=== PATIENT | female | born 1930 | race Hispanic/Latino ===

== ENCOUNTER 2017-03-21 10:43 | Inpatient (IN) | payer MEDICARE ==
[2017-03-21 11:56] LABS: Calcium 8.7 mg/dL (8.4-10.2); Chloride 107.2 mmol/L (98-107); Potassium 4.5 mmol/L (3.6-5.0)
[2017-03-21 12:13] LABS: Hematocrit 22.4 % (30.3-42.9); Hemoglobin 7.1 gm/dl (10.1-14.3); Mean Corpuscular HGB Conc 32 % (30-34); Mean Corpuscular Hemoglobin 28 pg (28-32); Mean Corpuscular Volume 87 fl (79-97); Platelet Count 205 K/mm3 (140-440); Red Blood Count 2.58 M/mm3 (3.65-5.03); Red Cell Distribution Width 17.4 % (13.2-15.2); White Blood Count 7.9 K/mm3 (4.5-11.0)
[2017-03-21] MEDS ORDERED: NACL 0.9% 500 ML 500 ML IV ONE ×2 (12:52→18:09)
--- NOTE | 2017-03-21 12:59 | Emergency Department Report ---
ED General Adult HPI - General Chief complaint: Weakness Stated complaint: SOB/ARM/LEGS PAIN Time Seen by Provider: 03/21/17 12:31 Source: patient Mode of arrival: Ambulatory Limitations: Physical Limitation - History of Present Illness Initial comments: Cardiology: Dr. Mccauley Nephrology: Dr. Mercado Primary care Dr.: Dr. Lisa Gastroenterology: Dr. Putnam Past medical history: Macular degeneration, blind in the right eye, congestive heart failure (does not know ejection fraction), renal insufficiency, ( previously was stage IV), coronary artery disease with stents, recent history of nosebleed, currently on Plavix, Resuscitation status: DO NOT RESUSCITATE, DO NOT INTUBATE This is an 86-year-old female. She is previously unknown to me. She presents to the ER complaining of generalized weakness and shortness of breath. There is no hematemesis. There is no bright red blood per rectum. There are no irritative or obstructive urinary symptoms. The symptoms are constant. They 're worsening. It worsened with physical exertion. It decreased with rest. There is no focal extremity weakness or numbness. There is no bladder or bowel retention or incontinence. There is no saddle anesthesia. Patient and daughter state no recent colonoscopy within the past 10 years. -: Gradual Consistency: constant Improves with: rest Worsens with: movement Associated Symptoms: loss of appetite, malaise, shortness of breath, weakness - Related Data Home Medications Medication Instructions Recorded Confirmed Last Taken Aspirin [Aspirin BABY CHEW TAB] 81 mg PO QDAY 03/21/17 03/21/17 Unknown AtorvaSTATin [Lipitor] 40 mg PO QHS 03/21/17 03/21/17 Unknown Carvedilol [Coreg] 3.125 mg PO DAILY 03/21/17 03/21/17 Unknown Clopidogrel Bisulfate [Plavix] 75 mg PO DAILY 03/21/17 03/21/17 Unknown Ergocalciferol (Vitamin D2) 1 tab PO QWEEK 03/21/17 03/21/17 Unknown [Vitamin D2] Furosemide [Lasix TAB] 20 mg PO DAILY 03/21/17 03/21/17 Unknown Iron 18 mg PO DAILY 03/21/17 03/21/17 Unknown Losartan [Cozaar] 25 mg PO DAILY 03/21/17 03/21/17 Unknown Mirtazapine 15 mg PO DAILY 03/21/17 03/21/17 Unknown Spironolactone [Aldactone] 12.5 mg PO DAILY 03/21/17 03/21/17 Unknown Allergies Allergy/AdvReac Type Severity Reaction Status Date / Time erythromycin base Allergy Vomiting Verified 03/21/17 11:03 ED Review of Systems ROS: Stated complaint: SOB/ARM/LEGS PAIN Other details as noted in HPI Constitutional: malaise, weakness Eyes: denies: vision change Respiratory: shortness of breath Cardiovascular: dyspnea on exertion Gastrointestinal: denies: abdominal pain Genitourinary: denies: urgency, dysuria Musculoskeletal: denies: back pain Skin: denies: lesions Neurological: weakness Psychiatric: as per HPI ED Past Medical Hx - Past Medical History Previous Medical History?: Yes Hx Congestive Heart Failure: Yes Hx Diabetes: Yes (Diet Controlled) Hx Renal Disease: Yes Additional medical history: Macular Deg., Cardiac Stents, - Surgical History Past Surgical History?: Yes Hx Coronary Stent: Yes Additional Surgical History: Stents, eye - Social History Smoking Status: Former Smoker Substance Use Type: None - Medications Home Medications: Home Medications Medication Instructions Recorded Confirmed Last Taken Type Aspirin [Aspirin BABY CHEW TAB] 81 mg PO QDAY 03/21/17 03/21/17 Unknown History AtorvaSTATin [Lipitor] 40 mg PO QHS 03/21/17 03/21/17 Unknown History Carvedilol [Coreg] 3.125 mg PO DAILY 03/21/17 03/21/17 Unknown History Clopidogrel Bisulfate [Plavix] 75 mg PO DAILY 03/21/17 03/21/17 Unknown History Ergocalciferol (Vitamin D2) 1 tab PO QWEEK 03/21/17 03/21/17 Unknown History [Vitamin D2] Furosemide [Lasix TAB] 20 mg PO DAILY 03/21/17 03/21/17 Unknown History Iron 18 mg PO DAILY 03/21/17 03/21/17 Unknown History Losartan [Cozaar] 25 mg PO DAILY 03/21/17 03/21/17 Unknown History Mirtazapine 15 mg PO DAILY 03/21/17 03/21/17 Unknown History Spironolactone [Aldactone] 12.5 mg PO DAILY 03/21/17 03/21/17 Unknown History ED Physical Exam - General Limitations: Physical Limitation General appearance: alert, in no apparent distress - Head Head exam: Present: atraumatic, normocephalic - Eye Eye exam: Present: EOMI, other (there is a cloudy an opacified right eye, which is chronic) - ENT ENT exam: Present: mucous membranes moist - Neck Neck exam: Present: normal inspection, full ROM. Absent: tenderness, meningismus - Respiratory Respiratory exam: Present: normal lung sounds bilaterally. Absent: respiratory distress, wheezes, rales, rhonchi, stridor, chest wall tenderness, accessory muscle use, decreased breath sounds, prolonged expiratory - Cardiovascular Cardiovascular Exam: Present: regular rate, normal rhythm, normal heart sounds. Absent: bradycardia, tachycardia, irregular rhythm, systolic murmur, diastolic murmur, rubs, gallop - GI/Abdominal GI/Abdominal exam: Present: soft, normal bowel sounds. Absent: distended, tenderness, guarding, rebound, rigid, pulsatile mass - Rectal Rectal exam: Present: normal inspection, normal rectal tone, heme (+) stool, other (there is brown stool that is trace guaiac positive. During the rectal examination, I am escorted by nurse Austin Dye) - Extremities Exam Extremities exam: Present: normal inspection, full ROM. Absent: tenderness, pedal edema, joint swelling, calf tenderness - Back Exam Back exam: Present: normal inspection. Absent: full ROM, tenderness, CVA tenderness (R), CVA tenderness (L), muscle spasm, paraspinal tenderness, vertebral tenderness - Neurological Exam Neurological exam: Present: alert, oriented X3, other (Extraocular movements intact. Tongue midline. No facial droop. Facial sensation intact to light touch in the V1, V2, V3 distribution bilaterally. 5 and 5 strength in 4 extremities.. Sensation is intact to light touch in 4 extremities.). Absent: motor sensory deficit - Psychiatric Psychiatric exam: Present: normal affect, normal mood - Skin Skin exam: Present: warm, dry, intact, normal color. Absent: rash ED Course Vital Signs 03/21/17 03/21/17 03/21/17 11:03 12:55 13:00 Temperature 97.5 F L 98.9 F Pulse Rate 87 72 76 Respiratory 20 25 H 18 Rate Blood Pressure 124/69 126/46 O2 Sat by Pulse 100 100 100 Oximetry 03/21/17 03/21/17 03/21/17 13:31 13:45 14:00 Temperature Pulse Rate 72 70 Respiratory 23 16 22 Rate Blood Pressure 126/46 120/37 O2 Sat by Pulse 100 98 100 Oximetry 03/21/17 03/21/17 03/21/17 14:31 15:00 15:31 Temperature Pulse Rate 73 73 72 Respiratory 23 18 23 Rate Blood Pressure 120/37 121/49 121/49 O2 Sat by Pulse 98 99 98 Oximetry 03/21/17 03/21/17 03/21/17 15:40 15:55 16:00 Temperature 98.2 F 98.2 F Pulse Rate 71 79 70 Respiratory 16 16 22 Rate Blood Pressure 121/49 125/46 130/46 O2 Sat by Pulse 99 100 100 Oximetry - Reevaluation(s) Reevaluation #1: 03/21/17 13:04 Differential diagnosis: Acute coronary syndrome, congestive heart failure, pneumonia, symptomatic anemia, urinary tract infection, multifactorial shortness of breath Assessment and plan: 86-year-old female with generalized weakness and malaise. Patient is DO NOT RESUSCITATE, DO NOT INTUBATE, she is alert, oriented, cogent and lucid. She is found to have renal insufficiency, which appears to be improved when compared to a verbal report from patient's daughter (she reports patient has been at stage IV renal insufficiency in the past.) She is anemic with a hemoglobin and hematocrit of 7/22 respectively, found to have guaiac positive stool. The patient is not interested in colonoscopy or cancer screening. The patient and family are interested in comfort care only. They are amenable to admission, and transfusion of packed red blood cells. Urinalysis and chest x-ray are pending. As per family, no aspirin, Maalox okay to Plavix. I have contacted cardiology, Cony Garsia, I am waiting for their formal recommendations. The Hospital physician has been paged, I'm awaiting callback to facilitate admission. Reevaluation #2: 03/21/17 13:59 Dr. Cole accepts patient ED Medical Decision Making - Lab Data Result diagrams: 03/21/17 11:24 03/21/17 11:24 Vital Signs 03/21/17 11:03 Temperature 97.5 F L Pulse Rate 87 Respiratory 20 Rate Blood Pressure 124/69 O2 Sat by Pulse 100 Oximetry Lab Results 03/21/17 03/21/17 Range/Units 11:24 11:24 WBC 7.9 (4.5-11.0) K/mm3 RBC 2.58 L (3.65-5.03) M/mm3 Hgb 7.1 L (10.1-14.3) gm/dl Hct 22.4 L (30.3-42.9) % MCV 87 (79-97) fl MCH 28 (28-32) pg MCHC 32 (30-34) % RDW 17.4 H (13.2-15.2) % Plt Count 205 (140-440) K/mm3 Lymph % (Auto) Client Services Specialist Rhea % (Auto) Client Services Specialist Eos % (Auto) Client Services Specialist Baso % (Auto) Client Services Specialist Lymph # Client Services Specialist [place]hea # Client Services Specialist Eos # Client Services Specialist Baso # Client Services Specialist Seg Neutrophils % Client Services Specialist Seg Neutrophils # Client Services Specialist Sodium 145 (137-145) mmol/L Potassium 4.5 (3.6-5.0) mmol/L Chloride 107.2 H (98-107) mmol/L Carbon Dioxide 20 L (22-30) mmol/L Anion Gap 22 mmol/L BUN 40 H (7-17) mg/dL Creatinine 1.6 H (0.7-1.2) mg/dL Estimated GFR 30 ml/min BUN/Creatinine Ratio 25.00 % Glucose 231 H (65-100) mg/dL Calcium 8.7 (8.4-10.2) mg/dL Troponin T 0.411 H* (0.00-0.029) ng/mL Triglycerides 89 (2-149) mg/dL Cholesterol 112 (50-199) mg/dL LDL Cholesterol Direct 63 (50-130) mg/dL HDL Cholesterol 32 L (40-59) mg/dL Cholesterol/HDL Ratio 3.50 % - EKG Data When compared to previous EKG there are: previous EKG unavailable 03/21/17 13:06 Normal sinus, 78 bpm, left axis deviation, left ventricular hypertrophy, Left anterior fascicular block, , poor R-wave progression, abnormal EKG, not morphologically consistent with STEMI. - Radiology Data Radiology results: report reviewed, image reviewed X-ray of the chest: Mild cardiomegaly, possible slight congestion with left- sided pleural effusion, EKG leads are noted. Critical Care Time: Yes Critical care time in (mins) excluding proc time.: 35 Critical care attestation.: If time is entered above; I have spent that time in minutes in the direct care of this critically ill patient, excluding procedure time. Critical Care Time: Critical care time includes multiple bedside evaluations, interpretation of laboratory studies, radiology studies, time spent discussing goals of care with patient, family, consulting services, including hospital medicine, cardiology, time spent managing a patient with symptomatic anemia requiring packed red blood cell transfusion. This does not include procedure time. ED Disposition Clinical Impression: Symptomatic anemia, Dyspnea, Weakness Disposition: OP ADMITTED IP TO THIS HOSP Is pt being admited?: Yes Condition: Fair
--- NOTE | 2017-03-21 13:02 | Admit Criteria Form ---
Admission Criteria Documentation: GASTROINTESTINAL BLEEDING Clinical Indications for Inpatient Care (Place 'X' for any and all applicable criteria): Ongoing inpatient care may be indicated for gastrointestinal bleeding with ANY ONE of the following (4)(20)(21)(22)(23)(24): [ ]I. Active bleeding (eg, fresh voluminous blood in emesis or nasogastric aspirate, or per rectum) [ ]II. Hemodynamic instability [ ]III. Anticoagulation therapy or coagulopathy ((eg, advanced liver disease, irreversible anticoagulation) [ ]IV. Ischemic colitis (22) [ ]V. Endoscopy showing arterial bleeding, adherent clot, nonbleeding visible vessel, varices, flat red spots, ulcer size greater than 2 cm, or portal hypertensive gastropathy [ ]. High-risk low platelet count [X ]VII. Anemia requiring inpatient care as indicated by ANY ONE of the following a)[ ] Cognitive impairment b)[ ] Syncope c)[ ] Heart failure d)[ ] Chest pain e)[X ] Dyspnea f)[ ] Other findings suggesting inadequate perfusion (eg, peripheral or myocardial ischemia, end organ dysfunction) [ ]VIII. High-risk low platelet count [ ]IX. Suspected variceal cause of bleeding as indicated by ANY ONE of the following(27)(28): a)[ ] Known varices b)[ ] Hepatomegaly or splenomegaly c)[ ] Ascites d)[ ] Jaundice or scleral icterus e)[ ] History of liver disease (eg, cirrhosis) f)[ ] Physical findings of portal hypertension (eg, caput medusa) g)[ ] Comorbid disorder indicating risk for portal vein thrombosis (eg , abdominal surgery, sepsis, shock, exchange transfusion, prior umbilical vein catheterization) Extended stay may be needed until ALL of the following are present(20)(38)(47): [ ]a) Hemodynamic stability [ ]b) No evidence of active bleeding (eg, stable Hematocrit) [ ]c) Platelet count, prothrombin time, and partial thromboplastin time acceptable for next level of care [ ]d) Surgical or other acute intervention not needed [ ]e) Oral hydration and diet tolerated The original [facility] [employer] content created by John Stroud has been revised. The portions of the content which have been revised are identified through the use of italic text or in bold, and John Stroud has neither reviewed nor approved the modified material. All other unmodified content is copyright [facility]. Please see references footnoted in the original [facility] edition 2016 Admission Criteria Met: Yes
--- NOTE | 2017-03-21 13:26 | XRay Report ---
PORTABLE CHEST INDICATION: Dyspnea. COMPARISON: None similar at this institution. FINDINGS: Portable, frontal chest radiograph suggests mild cardiomegaly. Aortic knob calcifications. Slightly prominent/crowded lung markings. Left basilar slight hazy atelectasis or fluid. EKG leads. Demineralized bones. CONCLUSION: Mild cardiomegaly and possible slight congestion/left pleural effusion, as described. Please correlate clinically and with prior chest imaging, if available. Thank you for the opportunity to participate in this patient's care.
--- NOTE | 2017-03-21 13:45 | Consultation ---
History of Present Illness Consult date: 03/21/17 Requesting physician: REAGAN RUSSELL Consult reason: other (dyspnea) History of present illness: The patient is an 86 YO female with a past medical history significant for HTN, HLP, CAD s/p PCI, ICMP, MR, TR, macular degeneration, DNR/DNI code status. She is followed in our office by Dr. Mccauley. She presented with c/o SOB x several weeks [employer]. She was seen in our office on 03/17 with c/o epistaxis. On admission, her H/H was found to be 7/, troponin was found to be 0.411. She denies any chest pain, palpitations, n/v, abdominal pain, evidence of bleeding, change in bowel habits, diaphoresis, dizziness, or syncope. Past History Past Medical History: CAD, hypertension, hyperlipidemia, other (ICMP) Social history: Lives alone. denies: smoking, alcohol abuse, prescription drug abuse Medications and Allergies Allergies Allergy/AdvReac Type Severity Reaction Status Date / Time erythromycin base Allergy Vomiting Verified 03/21/17 11:03 Review of Systems Constitutional: no weight loss, no weight gain, no fever, no chills, no sweats Ears, nose, mouth and throat: no ear pain, no nose pain, no sinus pressure, no sinus pain Cardiovascular: shortness of breath, dyspnea on exertion, decreased exercise tolerance, no chest pain, no orthopnea, no palpitations, no rapid/irregular heart beat, no edema, no syncope, no lightheadedness, no paroxysmal nocturnal dyspnea, no high blood pressure, no leg edema Respiratory: shortness of breath, dyspnea on exertion, no cough, no congestion, no wheezing, no pain Gastrointestinal: no abdominal pain, no nausea, no vomiting, no diarrhea, no constipation, no change in bowel habits, no hematemesis, no coffee ground emesis , no BRBPR, no melena, no hematochezia Genitourinary Female: no pelvic pain, no flank pain, no menorrhagia, no dysuria , no urinary frequency, no urgency Musculoskeletal: no neck stiffness, no neck pain, no shooting arm pain, no arm numbness/tingling, no low back pain, no shooting leg pain, no leg numbness/ tingling, no redness of joints Integumentary: no rash, no pruritis, no redness, no sores, no wounds Neurological: no head injury, no paralysis, no weakness, no parathesias, no numbness, no tingling, no seizures, no syncope Psychiatric: no anxiety Endocrine: no cold intolerance, no heat intolerance Hematologic/Lymphatic: no easy bruising, no easy bleeding, no lymphadenopathy Allergic/Immunologic: no urticaria, no wheezing, no persistent infections Physical Examination Vital Signs Temp Pulse Resp BP Pulse Ox 97.5 F L 87 20 124/69 100 03/21/17 11:03 03/21/17 11:03 03/21/17 11:03 03/21/17 11:03 03/21/17 11:03 General appearance: no acute distress HEENT: Positive: PERRL, Normocephaly, Mucus Membranes Moist Neck: Positive: neck supple, trachea midline Cardiac: Positive: Reg Rate and Rhythm, S1/S2, Systolic Murmur (grade II/) Lungs: Positive: Normal Exam, clear to auscultation, Normal Breath Sounds Neuro: Positive: Grossly Intact, Cranial Nerve 2-12 Intact Abdomen: Positive: Unremarkable, Soft, Active Bowel Sounds. Negative: Tender Skin: Positive: Clear. Negative: Rash, Wound Musculoskeletal: No Fluid Collection, No Pain, Normal Range of Motion Extremities: Present: normal, upper extr. pulses, lower extr. pulses. Absent: edema Results 03/21/17 11:24 03/21/17 11:24 Lipids 03/21/17 Range/Units 11:24 Triglycerides 89 (2-149) mg/dL Cholesterol 112 (50-199) mg/dL HDL Cholesterol 32 L (40-59) mg/dL Cholesterol/HDL Ratio 3.50 % CBC 03/21/17 Range/Units 11:24 WBC 7.9 (4.5-11.0) K/mm3 RBC 2.58 L (3.65-5.03) M/mm3 Hgb 7.1 L (10.1-14.3) gm/dl Hct 22.4 L (30.3-42.9) % Plt Count 205 (140-440) K/mm3 Lymph # Revenue Tax Specialist [place] # Revenue Tax Specialist Eos # Revenue Tax Specialist Baso # Revenue Tax Specialist Comprehensive Metabolic Panel 03/21/17 Range/Units 11:24 Sodium 145 (137-145) mmol/L Potassium 4.5 (3.6-5.0) mmol/L Chloride 107.2 H (98-107) mmol/L Carbon Dioxide 20 L (22-30) mmol/L BUN 40 H (7-17) mg/dL Creatinine 1.6 H (0.7-1.2) mg/dL Glucose 231 H (65-100) mg/dL Calcium 8.7 (8.4-10.2) mg/dL - Imaging and Cardiology Echo: report reviewed (01/2016: EF 20%, severely dilated LA, small pericardial effusion, mild-moderate TR, mild to moderate MR) Cardiac cath: report reviewed (03/2016: Successfull PCI of 90%LCx/OM2 stenosis with placement of overlapping 2.5 x15 mm and 3.0 x 23 mm Xience BRITTANIE with the proximal portion post dilated with 3.5 mm NC balloon. No residual stenosis and JENN 3 flow.) EKG: report reviewed, image reviewed EKG interpretations - Telemetry EKG Rhythm: Sinus Rhythm - EKG Sinus rhythms and dysrhythmias: sinus rhythm Repolarization changes or abnormalities: nonspecific abnormality, ST segment, and/or T wave Assessment and Plan Assessment: Dyspnea / symptomatic anemia NSTEMI type II CAD, s/p PCI ICMP - EF 20% ADAIR on CKD HTN HLP mild to moderate MR / mild to moderate TR macular degeneration H/o epistaxis 1 week ago Advanced age / DNR/DNI Plan: F/u echo. Resume home Coreg and statin. Hold home losartan in setting of ADAIR on CKD. Hold home DAPT and any anticoagulation in setting of anemia. Cont to trend cardiac enzymes. PRBC tx per primary. Recommend maintaining Hgb ~10. Consider GI evaluation. Repeat BMP in AM. Consider nephrology evaluation if Cr remains elevated. Continue with conservative measures given pt's advanced age and pt's wishes. Assessment and plan reviewed with pt and pt's daughter at bedside. The patient has been seen in conjunction with Dr. Mccauley who agrees with assessment and plan of care.
[2017-03-21 13:58] LABS: Bilirubin,Urine NEG (Negative); Blood,Urine NEG (Negative); Ketones,Urine TR mg/dL (Negative); Leukocyte Esterase,Urine NEG (Negative); Mucus,Urine FEW /HPF; Nitrite,Urine NEG (Negative)
[2017-03-21 14:06] LABS: INR 1.21 (0.87-1.13)
[2017-03-21] MEDS ORDERED: NACL 0.9% 500 ML 500 ML ONE (15:19)
[2017-03-21] MEDS ORDERED: SODIUM CHLORIDE FLUSH SYRINGE 10 ML IV PRN (18:11)
--- NOTE | 2017-03-21 18:54 | History and Physical Report ---
CHIEF COMPLAINT: Generalized weakness. HISTORY OF PRESENT ILLNESS: This 86-year-old female comes in for increasing weakness and shortness of breath. No hematemesis, no bright red blood per rectum. No chest pain. Only weakness and shortness of breath on minimal exertion. Decreased with rest. No focal weakness. No melena. No fever, no chills. No recent travel. PAST MEDICAL HISTORY: Significant for iron deficiency anemia, congestive heart failure, diabetes, renal insufficiency, macular degeneration, cardiac stents. PAST SURGICAL HISTORY: Significant for stents and eye surgery. SOCIAL HISTORY: Former smoker, stopped smoking about 15-20 years ago. FAMILY HISTORY: Significant for hypertension. REVIEW OF SYSTEMS: Significant for: CONSTITUTIONAL: No fever, no chills, no weight loss, no weight gain. HEENT: No sore throat, no postnasal drip. CARDIOVASCULAR: S1 and S2. No chest pain, no palpitations. Shortness of breath on exertion present. GASTROINTESTINAL: No nausea, no vomiting, no diarrhea. GENITOURINARY: No dysuria, no flank pain. MUSCULOSKELETAL: No joint pains. No muscle pains. CENTRAL NERVOUS SYSTEM: No syncope, no seizures. A 14-point review of systems is done and is essentially negative. PHYSICAL EXAMINATION: GENERAL: Elderly female, cooperative during the examination. VITAL SIGNS: Temperature 97.5, pulse is 87, respirations are 20, blood pressure 124/69, and saturations are 100%. HEENT: Unremarkable. Pale mucous membranes. NECK: Supple, no lymphadenopathy, no thyromegaly. LUNGS: Clear to auscultation and percussion. Good air entry. CARDIOVASCULAR: S1, S2 heard. No gallop, no murmur, no rub. Apical impulse in left fifth intercostal space and midclavicular line. ABDOMEN: Soft and benign. No hepatosplenomegaly. No guarding, no rigidity. Hernial orifices are normal. EXTREMITIES: Good pedal pulses. No pedal edema. CENTRAL NERVOUS SYSTEM: Alert and oriented x 4, nonfocal exam. LABORATORY DATA: Significant for hemoglobin of 7.1, hematocrit of 32.4. Chloride of 107.2, bicarbonate of 20, BUN and creatinine of 40 and 1.6. EKG shows left ventricular hypertrophy, heart rate of 78, normal sinus rhythm, left axis deviation. Chest x-ray showed mild cardiomegaly, slight pulmonary vascular congestion. Left-sided pleural effusion. ASSESSMENT AND PLAN: 1. Congestive heart failure exacerbation. The patient to get an echocardiogram. Cardiology also consulted. Diuretics with IV Lasix 20 mg daily. 2. Symptomatic anemia. Iron studies, B12 and folic acid ordered. The patient will be transfused 1 unit of blood. 3. Hyperlipidemia. We will hold statins because of weakness and possible myopathy. 4. Hypertension. Continue Coreg 3.125 daily and losartan 25 mg daily and spironolactone 12.5 p.o. daily. 5. Coronary artery disease. Continue Plavix 75 mg daily. 6. Congestive heart failure. As mentioned, continue IV Lasix 20 mg daily. 7. Restless legs syndrome. Continue mirtazapine 15 mg p.o. daily. 8. Deep venous thrombosis prophylaxis with Lovenox 40 mg subcutaneous daily. JOB# [id number] RAY/GIORGI
[2017-03-21] MEDS: LASIX IV SCH (20:05)
[2017-03-21] MEDS: ATIVAN IV PRN (20:55)
[2017-03-21] MEDS ORDERED: LASIX IV ONE (21:00)
[2017-03-21 21:51] LABS: Creatine Kinase MB 2.6 ng/mL (0.0-4.0)
[2017-03-21 21:54] LABS: Total Iron Binding Capacity 275.8 mcg/dL (250-450)
[2017-03-21] MEDS: COREG PO SCH (22:39)
[2017-03-22] MEDS ORDERED: NACL 0.9% 250ML 250 ML ONE (00:49)
[2017-03-22 01:43] LABS: Creatine Kinase MB 3.1 ng/mL (0.0-4.0)
[2017-03-22 06:23] LABS: BUN/Creatinine Ratio 24.11; Calcium 8.1 mg/dL (8.4-10.2); Chloride 105.8 mmol/L (98-107); Potassium 3.9 mmol/L (3.6-5.0)
[2017-03-22] MEDS ORDERED: LASIX PO SCH (10:00)
[2017-03-22] MEDS ORDERED: VITAMIN D3 PO SCH (10:00)
[2017-03-22] MEDS ORDERED: COREG PO SCH (10:00)
[2017-03-22 10:35] LABS: Hematocrit 28.6 % (30.3-42.9); Hemoglobin 9.4 gm/dl (10.1-14.3); Mean Corpuscular HGB Conc 33 % (30-34); Mean Corpuscular Hemoglobin 29 pg (28-32); Mean Corpuscular Volume 87 fl (79-97); Platelet Count 185 K/mm3 (140-440); Red Blood Count 3.28 M/mm3 (3.65-5.03); Red Cell Distribution Width 16.5 % (13.2-15.2); White Blood Count 9.4 K/mm3 (4.5-11.0)
--- NOTE | 2017-03-22 10:53 | Progress Note ---
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 Awaiting GI evaluation patient's currently compensated from systolic heart failure patient has no car a cardiac medications for EGD or coloscopy Subjective Date of service: 03/22/17 Principal diagnosis: sob Interval history: pt lying in bed and sob is better after transfusion Objective Vital Signs Temp Pulse Pulse Resp BP BP Pulse Ox 03/22/17 08:00 97.9 F 76 20 121/58 97 03/22/17 06:19 97.7 F 71 18 121/56 98 03/22/17 03:28 98.4 F 77 18 128/61 99 03/22/17 02:45 97.8 F 72 18 113/56 99 03/22/17 02:15 97.6 F 74 20 112/56 03/22/17 01:45 97.6 F 78 18 147/63 03/22/17 01:15 98.2 F 77 18 127/62 03/22/17 00:45 97.4 F L 74 18 139/63 03/22/17 00:31 97.5 F L 78 18 125/60 03/22/17 00:00 97.8 F 78 18 125/60 100 03/21/17 23:20 78 03/21/17 23:06 78 18 125/60 100 03/21/17 22:39 96 H 159/72 03/21/17 22:00 78 26 H 92 03/21/17 20:29 94 03/21/17 20:00 98.1 F 96 H 18 159/72 92 03/21/17 17:30 97.7 F 80 18 143/63 03/21/17 16:55 97.5 F L 78 18 125/60 100 03/21/17 16:00 70 22 130/46 100 03/21/17 15:55 98.2 F 79 16 125/46 100 03/21/17 15:40 98.2 F 71 16 121/49 99 03/21/17 15:31 72 23 121/49 98 03/21/17 15:00 73 18 121/49 99 03/21/17 14:31 73 23 120/37 98 - Physical Examination General: No Apparent Distress HEENT: Positive: PERRL, Normocephaly, Mucus Membranes Moist Neck: Positive: neck supple, trachea midline Cardiac: Positive: Reg Rate and Rhythm Lungs: Positive: clear to auscultation Neuro: Positive: Grossly Intact, Cranial Nerve 2-12 Intact Abdomen: Positive: Unremarkable, Soft, Active Bowel Sounds. Negative: Tender Skin: Positive: Clear. Negative: Rash, Wound Musculoskeletal: No Fluid Collection, No Pain, Normal Range of Motion Extremities: Present: normal, upper extr. pulses, lower extr. pulses. Absent: edema - Labs and Meds Cardiac Enzymes 03/21/17 03/22/17 Range/Units 21:20 01:09 CK-MB (CK-2) 2.6 3.1 (0.0-4.0) ng/mL CBC 03/22/17 Range/Units 10:27 WBC 9.4 (4.5-11.0) K/mm3 RBC 3.28 L (3.65-5.03) M/mm3 Hgb 9.4 L (10.1-14.3) gm/dl Hct 28.6 L D (30.3-42.9) % Plt Count 185 (140-440) K/mm3 Comprehensive Metabolic Panel 03/22/17 Range/Units 04:52 Sodium 147 H (137-145) mmol/L Potassium 3.9 (3.6-5.0) mmol/L Chloride 105.8 (98-107) mmol/L Carbon Dioxide 22 (22-30) mmol/L BUN 41 H (7-17) mg/dL Creatinine 1.7 H (0.7-1.2) mg/dL Glucose 144 H (65-100) mg/dL Calcium 8.1 L (8.4-10.2) mg/dL - Imaging and Cardiology EKG: report reviewed, image reviewed Echo: report reviewed (01/2016: EF 20%, severely dilated LA, small pericardial effusion, mild-moderate TR, mild to moderate MR) Cardiac cath: report reviewed (03/2016: Successfull PCI of 90%LCx/OM2 stenosis with placement of overlapping 2.5 x15 mm and 3.0 x 23 mm Xience BRITTANIE with the proximal portion post dilated with 3.5 mm NC balloon. No residual stenosis and JENN 3 flow.) - Telemetry EKG Rhythm: Sinus Rhythm - EKG Sinus rhythms and dysrhythmias: sinus rhythm Repolarization changes or abnormalities: nonspecific abnormality, ST segment, and/or T wave
--- NOTE | 2017-03-22 11:37 | Progress Note ---
Assessment and Plan Assessment and plan: Anemia. Hgb now 9.4 after 2 units PRBC. Hemoglobin was 7.1 on admission. Stool occult blood positive. However patient and daughter mentions she had massive epistaxis one week ago and may have residual blood in stool. No obvious blood in stool at home. Consult GI. Coronary artery disease s/p PCI Hypertension. BP stable. Acute on chronic systolic CHF. Started on Lasix iv. On Coreg Diabetes mellitus type 2 Chronic kidney disease stage 3. NSTEMI type 2 Elevated Troponin. Conservative management. DNR History Interval history: Less fatigue after blood transfusion, Less shortness of breath Hospitalist Physical - Physical exam Narrative exam: Gen: Not in acute distress HEENT: Normocephalic, atraumatic,poor hearing Neck: supple, no JVD Lungs: Bibasilar rales, no wheeze Heart S1-S2 regular, no murmurs rubs or gallop, Abdomen: soft, nontender non-distended, normal bowel sounds, Ext: no edema, no clubbing, no cyanosis Neuro: Awake.alert, oriented, no focal neurological signs, poor vision - Constitutional Vitals: Temp Pulse Resp BP Pulse Ox 97.9 F 63 20 121/58 97 03/22/17 08:00 03/22/17 11:20 03/22/17 08:00 03/22/17 08:00 03/22/17 08:00 General appearance: Present: no acute distress Results - Labs CBC & Chem 7: 03/22/17 10:27 03/22/17 04:52 Labs: Laboratory Last Values WBC 9.4 K/mm3 (4.5-11.0) 03/22/17 10:27 RBC 3.28 M/mm3 (3.65-5.03) L 03/22/17 10:27 Hgb 9.4 gm/dl (10.1-14.3) L 03/22/17 10:27 Hct 28.6 % (30.3-42.9) L D 03/22/17 10:27 MCV 87 fl (79-97) 03/22/17 10:27 MCH 29 pg (28-32) 03/22/17 10:27 MCHC 33 % (30-34) 03/22/17 10:27 RDW 16.5 % (13.2-15.2) H 03/22/17 10:27 Plt Count 185 K/mm3 (140-440) 03/22/17 10:27 Lymph % (Auto) [employer] 03/21/17 11:24 [place] % (Auto) [employer] 03/21/17 11:24 Eos % (Auto) [employer] 03/21/17 11:24 Baso % (Auto) [employer] 03/21/17 11:24 Lymph # [employer] 03/21/17 11:24 [place] # [employer]ator 03/21/17 11:24 Eos # [employer] 03/21/17 11:24 Baso # [employer] 03/21/17 11:24 Seg Neutrophils % [employer] 03/21/17 11:24 Seg Neutrophils # [employer] 03/21/17 11:24 PT 15.2 Sec. (12.2-14.9) H 03/21/17 13:33 INR 1.21 (0.87-1.13) H 03/21/17 13:33 Sodium 147 mmol/L (137-145) H 03/22/17 04:52 Potassium 3.9 mmol/L (3.6-5.0) 03/22/17 04:52 Chloride 105.8 mmol/L (98-107) 03/22/17 04:52 Carbon Dioxide 22 mmol/L (22-30) 03/22/17 04:52 Anion Gap 23 mmol/L 03/22/17 04:52 BUN 41 mg/dL (7-17) H 03/22/17 04:52 Creatinine 1.7 mg/dL (0.7-1.2) H 03/22/17 04:52 Estimated GFR 28 ml/min 03/22/17 04:52 BUN/Creatinine Ratio 24.11 % 03/22/17 04:52 Glucose 144 mg/dL (65-100) H 03/22/17 04:52 Calcium 8.1 mg/dL (8.4-10.2) L 03/22/17 04:52 Iron 62 ug/dL (37-170) 03/21/17 21:20 TIBC 275.80 mcg/dL (250-450) 03/21/17 21:20 % Saturation 22.48 % 03/21/17 21:20 Transferrin 197 mg/dl (192-382) 03/21/17 21:20 Total Creatine Kinase 59 units/L (30-135) 03/22/17 01:09 CK-MB (CK-2) 3.1 ng/mL (0.0-4.0) 03/22/17 01:09 CK-MB (CK-2) Rel Index 5.2 (0-4) H 03/22/17 01:09 Troponin T 0.509 ng/mL (0.00-0.029) H* D 03/22/17 01:09 Triglycerides 89 mg/dL (2-149) 03/21/17 11:24 Cholesterol 112 mg/dL (50-199) 03/21/17 11:24 LDL Cholesterol Direct 63 mg/dL (50-130) 03/21/17 11:24 HDL Cholesterol 32 mg/dL (40-59) L 03/21/17 11:24 Cholesterol/HDL Ratio 3.50 % 03/21/17 11:24 Vitamin B12 829.6 pg/mL (211-911) 03/21/17 21:20 Urine Color Yellow (Yellow) 03/21/17 13:29 Urine Turbidity Clear (Clear) 03/21/17 13:29 Urine pH 6.0 (5.0-7.0) 03/21/17 13:29 Ur Specific [place] 1.023 (1.003-1.030) 03/21/17 13:29 Urine Protein 30 mg/dl mg/dL (Negative) 03/21/17 13:29 Urine Glucose (UA) Neg mg/dL (Negative) 03/21/17 13:29 Urine Ketones Tr mg/dL (Negative) 03/21/17 13:29 Urine Blood Neg (Negative) 03/21/17 13:29 Urine Nitrite Neg (Negative) 03/21/17 13:29 Urine Bilirubin Neg (Negative) 03/21/17 13:29 Urine Urobilinogen 4.0 mg/dL (<2.0) 03/21/17 13:29 Ur Leukocyte Esterase Neg (Negative) 03/21/17 13:29 Urine WBC (Auto) 2.0 /HPF (0.0-6.0) 03/21/17 13:29 Urine RBC (Auto) 1.0 /HPF (0.0-6.0) 03/21/17 13:29 U Epithel Cells (Auto) < 1.0 /HPF (0-13.0) 03/21/17 13:29 Urine Mucus Few /HPF 03/21/17 13:29 Blood Type O POSITIVE 03/21/17 13:33 Antibody Screen TNR 03/21/17 13:33 RAMÍREZ Antibody Screen Negative 03/21/17 13:33 Crossmatch See Detail 03/21/17 13:33
[2017-03-22] MEDS: PLAVIX PO SCH (12:53)
[2017-03-22] MEDS: ALDACTONE PO SCH (12:54)
[2017-03-22] MEDS: COZAAR PO SCH (12:54)
[2017-03-22] MEDS: REMERON PO SCH (12:54)
[2017-03-22] MEDS: COREG PO SCH ×2 (12:54→21:33)
[2017-03-22] MEDS: LASIX IV SCH (12:55)
[2017-03-22] MEDS: ATIVAN IV PRN (21:34)
[2017-03-23 06:41] LABS: Hematocrit 28.3 % (30.3-42.9); Hemoglobin 9.4 gm/dl (10.1-14.3)
[2017-03-23] MEDS: PROTONIX IV SCH ×2 (10:13)
[2017-03-23] MEDS: LASIX IV SCH (10:14)
[2017-03-23] MEDS: PLAVIX PO SCH (10:16)
[2017-03-23] MEDS: REMERON PO SCH (10:17)
--- NOTE | 2017-03-23 10:17 | Discharge Summary ---
Providers - Providers Date of Admission: 03/21/17 14:00 Date of discharge: 03/23/17 Attending physician: REAGAN BUSH 03/21/17 Consult to Cardiac Rehabilitation [CONS] Routine Reason For Exam: Phase I 03/22/17 13:50 Consult to Physician [CONS] Routine Consulting Provider: GALA HAMMOND Reason For Exam: Stool occult blood positive,anemia Place consult to:: Dr. Francsico Hammond Notified:: Kimberly STANLEY Phone number called:: Was contact made?: Yes If yes, spoke with:: [facility] Time called:: 13:56 Primary care physician: MELITON LUIS Hospitalization Condition: Fair - Discharge Diagnoses (1) Dyspnea Status: Acute Qualifiers: Dyspnea type: D (2) Symptomatic anemia Status: Acute Core Measure Documentation - Palliative Care Palliative Care/ Comfort Measures: Not Applicable Exam - Constitutional Vitals: Temp Pulse Resp BP Pulse Ox 97.8 F 72 20 95/55 94 03/23/17 07:14 03/23/17 07:14 03/23/17 07:14 03/23/17 07:14 03/23/17 08:21 Plan Activity: advance as tolerated Diet: regular Additional Instructions: 1.Follow up with primary care physician in one week. 2.Follow-up with Dr. Kapadia, cardiology in 1 week. 3.Follow up with Dr. Ed Hammond, GI in 1 week Follow up with: MELITON LUIS MD [Primary Care Provider] - 3-5 Days Prescriptions: Pantoprazole [Protonix] 40 mg PO QDAY #30 tablet
[2017-03-23] MEDS: ALDACTONE PO SCH (10:18)
--- NOTE | 2017-03-23 11:10 | Progress Note ---
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 Awaiting GI evaluation patient's currently compensated from systolic heart failure continue patient's home congestive heart failure medications Subjective Date of service: 03/23/17 Principal diagnosis: sob Interval history: Patient shortness breath has improved Objective Vital Signs Temp Pulse Pulse Resp BP Pulse Ox 03/23/17 08:21 94 03/23/17 07:14 97.8 F 72 20 95/55 99 03/23/17 04:00 80 03/23/17 01:49 69 18 94/51 100 03/22/17 22:00 95 03/22/17 21:30 97.6 F 73 20 120/58 99 03/22/17 16:00 97.4 F L 79 20 121/55 100 03/22/17 12:30 97.4 F L 70 18 134/60 98 03/22/17 11:30 97.4 F L 70 18 134/60 98 03/22/17 11:20 63 - Physical Examination General: No Apparent Distress HEENT: Positive: PERRL, Normocephaly, Mucus Membranes Moist Neck: Positive: neck supple, trachea midline Cardiac: Positive: Reg Rate and Rhythm, Systolic Murmur Lungs: Positive: clear to auscultation Neuro: Positive: Grossly Intact, Cranial Nerve 2-12 Intact Abdomen: Positive: Unremarkable, Soft, Active Bowel Sounds. Negative: Tender Skin: Positive: Clear. Negative: Rash, Wound Musculoskeletal: No Fluid Collection, No Pain, Normal Range of Motion Extremities: Present: normal, upper extr. pulses, lower extr. pulses. Absent: edema - Labs and Meds CBC 03/23/17 Range/Units 06:09 Hgb 9.4 L (10.1-14.3) gm/dl Hct 28.3 L (30.3-42.9) % - Imaging and Cardiology EKG: report reviewed, image reviewed Echo: report reviewed (01/2016: EF 20%, severely dilated LA, small pericardial effusion, mild-moderate TR, mild to moderate MR), other (severe LV dysfunction 10-15%, moderate severe mitral regurgitation mild tricuspid regurgitation with RVSP of 30 mmHg) Cardiac cath: report reviewed (03/2016: Successfull PCI of 90%LCx/OM2 stenosis with placement of overlapping 2.5 x15 mm and 3.0 x 23 mm Xience BRITTANIE with the proximal portion post dilated with 3.5 mm NC balloon. No residual stenosis and JENN 3 flow.) - EKG Sinus rhythms and dysrhythmias: sinus rhythm Repolarization changes or abnormalities: nonspecific abnormality, ST segment, and/or T wave
--- NOTE | 2017-03-23 12:33 | Progress Note ---
Assessment and Plan Assessment and plan: Anemia. Hgb now 9.4 after 2 units PRBC. Hemoglobin was 7.1 on admission. Stool occult blood positive. However patient and daughter mentions she had massive epistaxis one week ago and may have residual blood in stool. No obvious blood in stool at home. Consulted GI. Coronary artery disease s/p PCI Hypertension. BP stable. Acute on chronic systolic CHF. Continue Lasix iv. Coreg Diabetes mellitus type 2 Chronic kidney disease stage 3. NSTEMI type 2 Elevated Troponin. Conservative management. DNR She is medically stable for discharge. The patient and family now states they want to go to rehabilitation facility. Physical therapy consulted. Discussed with director of casework department. - Patient Problems (1) Dyspnea Current Visit: Yes Status: Acute Qualifiers: Dyspnea type: D (2) Symptomatic anemia Current Visit: Yes Status: Acute History Interval history: Less fatigue after blood transfusion, Less shortness of breath, generalized weakness Hospitalist Physical - Physical exam Narrative exam: Gen: Not in acute distress HEENT: Normocephalic, atraumatic,poor hearing Neck: supple, no JVD Lungs: Clear to auscultation, bilaterally, no wheeze Heart S1-S2 regular, no murmurs rubs or gallop, Abdomen: soft, nontender non-distended, normal bowel sounds, Ext: no edema, no clubbing, no cyanosis Neuro: Awake.alert, oriented, no focal neurological signs, poor vision - Constitutional Vitals: Temp Pulse Resp BP Pulse Ox 97.8 F 72 20 95/55 94 03/23/17 07:14 03/23/17 07:14 03/23/17 07:14 03/23/17 07:14 03/23/17 08:21 General appearance: Present: no acute distress Results - Labs CBC & Chem 7: 03/24/17 07:00 03/24/17 07:00 Labs: Laboratory Last Values WBC 9.4 K/mm3 (4.5-11.0) 03/22/17 10:27 RBC 3.28 M/mm3 (3.65-5.03) L 03/22/17 10:27 Hgb 9.4 gm/dl (10.1-14.3) L 03/23/17 06:09 Hct 28.3 % (30.3-42.9) L 03/23/17 06:09 MCV 87 fl (79-97) 03/22/17 10:27 MCH 29 pg (28-32) 03/22/17 10:27 MCHC 33 % (30-34) 03/22/17 10:27 RDW 16.5 % (13.2-15.2) H 03/22/17 10:27 Plt Count 185 K/mm3 (140-440) 03/22/17 10:27 Lymph % (Auto) Cook Pressure 03/21/17 11:24 [place] % (Auto) Cook Pressure 03/21/17 11:24 Eos % (Auto) Cook Pressure 03/21/17 11:24 Baso % (Auto) Cook Pressure 03/21/17 11:24 Lymph # Cook Pressure 03/21/17 11:24 [place] # Cook Pressure 03/21/17 11:24 Eos # Cook Pressure 03/21/17 11:24 Baso # Cook Pressure 03/21/17 11:24 Seg Neutrophils % Cook Pressure 03/21/17 11:24 Seg Neutrophils # Cook Pressure 03/21/17 11:24 PT 15.2 Sec. (12.2-14.9) H 03/21/17 13:33 INR 1.21 (0.87-1.13) H 03/21/17 13:33 Sodium 147 mmol/L (137-145) H 03/22/17 04:52 Potassium 3.9 mmol/L (3.6-5.0) 03/22/17 04:52 Chloride 105.8 mmol/L (98-107) 03/22/17 04:52 Carbon Dioxide 22 mmol/L (22-30) 03/22/17 04:52 Anion Gap 23 mmol/L 03/22/17 04:52 BUN 41 mg/dL (7-17) H 03/22/17 04:52 Creatinine 1.7 mg/dL (0.7-1.2) H 03/22/17 04:52 Estimated GFR 28 ml/min 03/22/17 04:52 BUN/Creatinine Ratio 24.11 % 03/22/17 04:52 Glucose 144 mg/dL (65-100) H 03/22/17 04:52 Calcium 8.1 mg/dL (8.4-10.2) L 03/22/17 04:52 Iron 62 ug/dL (37-170) 03/21/17 21:20 TIBC 275.80 mcg/dL (250-450) 03/21/17 21:20 % Saturation 22.48 % 03/21/17 21:20 Transferrin 197 mg/dl (192-382) 03/21/17 21:20 Total Creatine Kinase 59 units/L (30-135) 03/22/17 01:09 CK-MB (CK-2) 3.1 ng/mL (0.0-4.0) 03/22/17 01:09 CK-MB (CK-2) Rel Index 5.2 (0-4) H 03/22/17 01:09 Troponin T 0.509 ng/mL (0.00-0.029) H* D 03/22/17 01:09 Triglycerides 89 mg/dL (2-149) 03/21/17 11:24 Cholesterol 112 mg/dL (50-199) 03/21/17 11:24 LDL Cholesterol Direct 63 mg/dL (50-130) 03/21/17 11:24 HDL Cholesterol 32 mg/dL (40-59) L 03/21/17 11:24 Cholesterol/HDL Ratio 3.50 % 03/21/17 11:24 Vitamin B12 829.6 pg/mL (211-911) 03/21/17 21:20 Urine Color Yellow (Yellow) 03/21/17 13:29 Urine Turbidity Clear (Clear) 03/21/17 13:29 Urine pH 6.0 (5.0-7.0) 03/21/17 13:29 Ur Specific [place] 1.023 (1.003-1.030) 03/21/17 13:29 Urine Protein 30 mg/dl mg/dL (Negative) 03/21/17 13:29 Urine Glucose (UA) Neg mg/dL (Negative) 03/21/17 13:29 Urine Ketones Tr mg/dL (Negative) 03/21/17 13:29 Urine Blood Neg (Negative) 03/21/17 13:29 Urine Nitrite Neg (Negative) 03/21/17 13:29 Urine Bilirubin Neg (Negative) 03/21/17 13:29 Urine Urobilinogen 4.0 mg/dL (<2.0) 03/21/17 13:29 Ur Leukocyte Esterase Neg (Negative) 03/21/17 13:29 Urine WBC (Auto) 2.0 /HPF (0.0-6.0) 03/21/17 13:29 Urine RBC (Auto) 1.0 /HPF (0.0-6.0) 03/21/17 13:29 U Epithel Cells (Auto) < 1.0 /HPF (0-13.0) 03/21/17 13:29 Urine Mucus Few /HPF 03/21/17 13:29 Blood Type O POSITIVE 03/21/17 13:33 Antibody Screen TNR 03/21/17 13:33 RAMÍREZ Antibody Screen Negative 03/21/17 13:33 Crossmatch See Detail 03/21/17 13:33
[2017-03-23] MEDS: COZAAR PO SCH (13:16)
[2017-03-23] MEDS: COREG PO SCH ×2 (13:16→22:03)
--- NOTE | 2017-03-23 14:25 | Event Note ---
Date: 03/23/17 - full GI consult dictated - no plans to scope or other intervention at this time - ok to d/c, call if needed
--- NOTE | 2017-03-23 22:24 | Consultation ---
REFERRING PHYSICIAN: Antonio Cantu MD INDICATION: Anemia. HISTORY OF PRESENT ILLNESS: The patient is an 86-year-old white female who has been seen by GI for anemia. The patient has a history of iron deficiency anemia, CHF, diabetes, renal failure, macular degeneration. The patient reports she had been having progressive shortness of breath and weakness. She denies any obvious signs of blood loss including bright red blood per rectum, melena, or hematemesis. She reports her last colonoscopy was years ago. The patient subsequently was brought to the Emergency Room, was noted to have signs and symptoms of congestive heart failure with anemia. No other specific complaints. PAST MEDICAL HISTORY: 1. Iron deficiency anemia. 2. CHF. 3. Diabetes. 4. Renal insufficiency. 5. Status post eye surgery. MEDICATIONS: See chart. ALLERGIES: No known drug allergies. SOCIAL HISTORY: Smoker in the past. FAMILY HISTORY: Negative for colon cancer. REVIEW OF SYSTEMS: GENERAL: Reports mild weakness. HEENT: No visual complaints or tinnitus. PULMONARY: Reports some shortness of breath. CARDIOVASCULAR: Denies chest pain. GASTROINTESTINAL: Reports no bowel changes. All points of 13-point review of systems otherwise negative. PHYSICAL EXAMINATION: VITAL SIGNS: Temperature of 97.8, pulse 74, respiration 18, blood pressure 130/80. GENERAL: Fairly thin white female in no acute distress. HEENT: Pupils equal, round, reactive. PULMONARY: Clear. CARDIOVASCULAR: regular rate rhythm. ABDOMEN: Soft. SKIN: No obvious rashes. LABORATORY DATA: Pertinent for white count of 9.4, hemoglobin and hematocrit of 9.4 and 28.3, platelet count of 185. Chem-7 within normal limits. ASSESSMENT AND PLAN: An 86-year-old female with past medical history as noted above, presented with some shortness of breath and signs of CHF noted to be anemic. The patient has a history of iron deficiency. Of note, the patient had been having some nosebleeds recently and was noted to have heme positive stool. I had a long discussion with the patient regarding her options. She defers any colonoscopy or other invasive intervention at this time. Management as noted below. PLAN: 1. Follow hematocrit and transfuse as needed. 2. PPI daily. 3. From a GI standpoint, there is no plan for endoscopic evaluation and given the fact her H and H has been stable on repeat okay to discharge. 4. Call if needed. [facility]# [id number] [facility]/[facility]GI ROSS
[2017-03-24 07:30] LABS: Hematocrit 30.4 % (30.3-42.9); Hemoglobin 9.8 gm/dl (10.1-14.3)
[2017-03-24 07:43] LABS: BUN/Creatinine Ratio 30.62; Chloride 104.7 mmol/L (98-107); Potassium 4.3 mmol/L (3.6-5.0)
[2017-03-24] MEDS: LASIX IV SCH (10:01)
[2017-03-24] MEDS: PLAVIX PO SCH (10:01)
[2017-03-24] MEDS: PROTONIX IV SCH (10:01)
[2017-03-24] MEDS: ALDACTONE PO SCH (10:02)
[2017-03-24] MEDS: COREG PO SCH ×3 (10:02→10:14)
[2017-03-24] MEDS: REMERON PO SCH (10:02)
[2017-03-24] MEDS: COZAAR PO SCH ×3 (10:02→10:15)
--- NOTE | 2017-03-24 10:37 | Progress Note ---
Assessment and Plan - Patient Problems (1) Dyspnea Current Visit: Yes Status: Acute Qualifiers: Dyspnea type: D (2) Symptomatic anemia Current Visit: Yes Status: Acute Hospitalist Physical - Constitutional Vitals: Temp Pulse Resp BP Pulse Ox 98.4 F 67 12 125/61 98 03/24/17 10:08 03/24/17 10:08 03/24/17 10:08 03/24/17 10:08 03/24/17 10:08 General appearance: Present: no acute distress Results - Labs CBC & Chem 7: 03/24/17 07:00 03/24/17 07:00 Labs: Laboratory Last Values WBC 9.4 K/mm3 (4.5-11.0) 03/22/17 10:27 RBC 3.28 M/mm3 (3.65-5.03) L 03/22/17 10:27 Hgb 9.8 gm/dl (10.1-14.3) L 03/24/17 07:00 Hct 30.4 % (30.3-42.9) 03/24/17 07:00 MCV 87 fl (79-97) 03/22/17 10:27 MCH 29 pg (28-32) 03/22/17 10:27 MCHC 33 % (30-34) 03/22/17 10:27 RDW 16.5 % (13.2-15.2) H 03/22/17 10:27 Plt Count 185 K/mm3 (140-440) 03/22/17 10:27 Lymph % (Auto) Service Writer Advisor 03/21/17 11:24 [place] % (Auto) Service Writer Advisor 03/21/17 11:24 Eos % (Auto) Service Writer Advisor 03/21/17 11:24 Baso % (Auto) Service Writer Advisor 03/21/17 11:24 Lymph # Service Writer Advisor 03/21/17 11:24 [place] # Service Writer Advisor 03/21/17 11:24 Eos # Service Writer Advisor 03/21/17 11:24 Baso # Service Writer Advisor 03/21/17 11:24 Seg Neutrophils % Service Writer Advisor 03/21/17 11:24 Seg Neutrophils # Service Writer Advisor 03/21/17 11:24 PT 15.2 Sec. (12.2-14.9) H 03/21/17 13:33 INR 1.21 (0.87-1.13) H 03/21/17 13:33 Sodium 143 mmol/L (137-145) 03/24/17 07:00 Potassium 4.3 mmol/L (3.6-5.0) 03/24/17 07:00 Chloride 104.7 mmol/L (98-107) 03/24/17 07:00 Carbon Dioxide 23 mmol/L (22-30) 03/24/17 07:00 Anion Gap 20 mmol/L 03/24/17 07:00 BUN 49 mg/dL (7-17) H 03/24/17 07:00 Creatinine 1.6 mg/dL (0.7-1.2) H 03/24/17 07:00 Estimated GFR 30 ml/min 03/24/17 07:00 BUN/Creatinine Ratio 30.62 % 03/24/17 07:00 Glucose 111 mg/dL (65-100) H 03/24/17 07:00 Calcium 8.0 mg/dL (8.4-10.2) L 03/24/17 07:00 Iron 62 ug/dL (37-170) 03/21/17 21:20 TIBC 275.80 mcg/dL (250-450) 03/21/17 21:20 % Saturation 22.48 % 03/21/17 21:20 Transferrin 197 mg/dl (192-382) 03/21/17 21:20 Total Creatine Kinase 59 units/L (30-135) 03/22/17 01:09 CK-MB (CK-2) 3.1 ng/mL (0.0-4.0) 03/22/17 01:09 CK-MB (CK-2) Rel Index 5.2 (0-4) H 03/22/17 01:09 Troponin T 0.509 ng/mL (0.00-0.029) H* D 03/22/17 01:09 Triglycerides 89 mg/dL (2-149) 03/21/17 11:24 Cholesterol 112 mg/dL (50-199) 03/21/17 11:24 LDL Cholesterol Direct 63 mg/dL (50-130) 03/21/17 11:24 HDL Cholesterol 32 mg/dL (40-59) L 03/21/17 11:24 Cholesterol/HDL Ratio 3.50 % 03/21/17 11:24 Vitamin B12 829.6 pg/mL (211-911) 03/21/17 21:20 Urine Color Yellow (Yellow) 03/21/17 13:29 Urine Turbidity Clear (Clear) 03/21/17 13:29 Urine pH 6.0 (5.0-7.0) 03/21/17 13:29 Ur Specific [place] 1.023 (1.003-1.030) 03/21/17 13:29 Urine Protein 30 mg/dl mg/dL (Negative) 03/21/17 13:29 Urine Glucose (UA) Neg mg/dL (Negative) 03/21/17 13:29 Urine Ketones Tr mg/dL (Negative) 03/21/17 13:29 Urine Blood Neg (Negative) 03/21/17 13:29 Urine Nitrite Neg (Negative) 03/21/17 13:29 Urine Bilirubin Neg (Negative) 03/21/17 13:29 Urine Urobilinogen 4.0 mg/dL (<2.0) 03/21/17 13:29 Ur Leukocyte Esterase Neg (Negative) 03/21/17 13:29 Urine WBC (Auto) 2.0 /HPF (0.0-6.0) 03/21/17 13:29 Urine RBC (Auto) 1.0 /HPF (0.0-6.0) 03/21/17 13:29 U Epithel Cells (Auto) < 1.0 /HPF (0-13.0) 03/21/17 13:29 Urine Mucus Few /HPF 03/21/17 13:29 Blood Type O POSITIVE 03/21/17 13:33 Antibody Screen TNR 03/21/17 13:33 RAMÍREZ Antibody Screen Negative 03/21/17 13:33 Crossmatch See Detail 03/21/17 13:33
--- NOTE | 2017-03-24 11:28 | Consultation ---
History of Present Illness - Reason for Consult Consult date: 03/24/17 Evaluate for Acute IRU - History of Present Illness 86 y.o. female admitted secondary to prolonged complaints of shortness of breath following significant epistaxis 1 week prior to admission. Pt noted to have H/H of 7.1/22.4; transfused 2U pRBCs given cardiac history. Also noted to have +stool for occult blood; however, not recommended for scope during visit. Consult requested for post-acute placement recommendations. Past History Past Medical History: CAD, hypertension, hyperlipidemia Past Surgical History: Other (cardiac stent placement; eye surgery) Social history: Lives alone. denies: smoking (former) Family history: CAD Medications and Allergies Allergies Allergy/AdvReac Type Severity Reaction Status Date / Time erythromycin base Allergy Vomiting Verified 03/21/17 11:03 Home Medications Medication Instructions Recorded Confirmed Last Taken Type Aspirin [Aspirin BABY CHEW TAB] 81 mg PO QDAY 03/21/17 03/21/17 Unknown History AtorvaSTATin [Lipitor] 40 mg PO QHS 03/21/17 03/21/17 Unknown History Carvedilol [Coreg] 3.125 mg PO DAILY 03/21/17 03/21/17 Unknown History Clopidogrel Bisulfate [Plavix] 75 mg PO DAILY 03/21/17 03/21/17 Unknown History Ergocalciferol (Vitamin D2) 1 tab PO QWEEK 03/21/17 03/21/17 Unknown History [Vitamin D2] Furosemide [Lasix TAB] 20 mg PO DAILY 03/21/17 03/21/17 Unknown History Iron 18 mg PO DAILY 03/21/17 03/21/17 Unknown History Losartan [Cozaar] 25 mg PO DAILY 03/21/17 03/21/17 Unknown History Mirtazapine 15 mg PO DAILY 03/21/17 03/21/17 Unknown History Spironolactone [Aldactone] 12.5 mg PO DAILY 03/21/17 03/21/17 Unknown History Pantoprazole [Protonix] 40 mg PO QDAY #30 tablet 03/23/17 Unknown Rx Active Meds: Active Medications Atorvastatin Calcium (Lipitor) 40 mg PO QHS [facility] Last Admin: 03/23/17 22:03 Dose: 40 mg Carvedilol (Coreg) 3.125 mg PO BID [facility] Last Admin: 03/24/17 10:14 Dose: 3.125 mg Cholecalciferol (Vitamin D3) 2,000 unit PO Sa [facility] Last Admin: 03/22/17 12:53 Dose: 2,000 unit Clopidogrel Bisulfate (Plavix) 75 mg PO DAILY [facility] Last Admin: 03/24/17 10:01 Dose: 75 mg Furosemide (Lasix) 20 mg IV QDAY [facility] Last Admin: 03/24/17 10:01 Dose: 20 mg Lorazepam (Ativan) 1 mg IV Q6H PRN PRN Reason: Anxiety Last Admin: 03/22/17 21:34 Dose: 1 mg Losartan Potassium (Cozaar) 25 mg PO DAILY [facility] Last Admin: 03/24/17 10:15 Dose: 25 mg Mirtazapine (Remeron) 15 mg PO DAILY [facility] Last Admin: 03/24/17 10:02 Dose: 15 mg Pantoprazole Sodium (Protonix) 40 mg IV QDAY [facility] Last Admin: 03/24/17 10:01 Dose: 40 mg Sodium Chloride (Sodium Chloride Flush Syringe 10 Ml) 10 ml IV PRN PRN PRN Reason: LINE FLUSH Spironolactone (Aldactone) 12.5 mg PO DAILY [facility] Last Admin: 03/24/17 10:02 Dose: 12.5 mg Review of Systems All systems: negative Eyes: right: loss of vision (chronic) Ears, nose, mouth and throat: no headache Cardiovascular: no chest pain Respiratory: no cough Gastrointestinal: change in bowel habits (no BM since admission), no nausea, no vomiting Genitourinary Female: no dysuria Musculoskeletal: muscle weakness, gait dysfunction Exam - Constitutional Vitals: Vital Signs - 12hr 03/24/17 03/24/17 03/24/17 00:00 04:00 06:27 Temperature 97.7 F 98.1 F Pulse Rate 57 L Pulse Rate [ 72 71 Right Radial] Respiratory 18 18 Rate Blood Pressure 92/49 94/52 [Left Arm] Blood Pressure [Right Arm] O2 Sat by Pulse 98 97 Oximetry 03/24/17 03/24/17 03/24/17 08:08 08:11 10:00 Temperature Pulse Rate 55 L Pulse Rate [ 67 Right Radial] Respiratory 18 Rate Blood Pressure [Left Arm] Blood Pressure [Right Arm] O2 Sat by Pulse 96 98 Oximetry 03/24/17 10:08 Temperature 98.4 F Pulse Rate Pulse Rate [ 67 Right Radial] Respiratory 12 Rate Blood Pressure [Left Arm] Blood Pressure 125/61 [Right Arm] O2 Sat by Pulse 98 Oximetry General appearance: no acute distress, other (sitting up in bed) - EENT Eyes: EOM intact ENT: hearing intact - Neck Neck: supple, normal ROM - Respiratory Respiratory effort: normal Respiratory: bilateral: CTA - Cardiovascular Rhythm: regular Heart Sounds: Present: S1 & S2 - Extremities Extremities: No edema - Gastrointestinal General gastrointestinal: Present: soft, non-tender, non-distended, normal bowel sounds - Integumentary Integumentary: Present: clear - Musculoskeletal Musculoskeletal: strength equal bilaterally (4/5) - Neurologic Neurologic: CNII-XII intact, moves all extremities - Psychiatric Psychiatric: appropriate mood/affect, intact judgment & insight, memory intact, cooperative - Allied health notes Allied health notes reviewed: PT (Independent with bed mobility and transfers; Dwaine for gait >200 feet) FIMS assesment as documented by PT/OT/ST: Locomotion- walk/wheelchair Ambulation Distance 280 - Labs CBC & Chem 7: 03/24/17 07:00 03/24/17 07:00 Labs: Laboratory Results - last 72 hr 03/21/17 03/21/17 03/21/17 14:08 21:20 21:20 WBC RBC Hgb Hct MCV MCH MCHC RDW Plt Count Sodium Potassium Chloride Carbon Dioxide Anion Gap BUN Creatinine Estimated GFR BUN/Creatinine Ratio Glucose Calcium Iron 62 TIBC 275.80 % Saturation 22.48 Transferrin 197 Total Creatine Kinase CK-MB (CK-2) CK-MB (CK-2) Rel Index Troponin T 0.437 H* Vitamin B12 829.6 03/21/17 03/22/17 03/22/17 21:20 01:09 04:52 WBC RBC Hgb Hct MCV MCH MCHC RDW Plt Count Sodium 147 H Potassium 3.9 Chloride 105.8 Carbon Dioxide 22 Anion Gap 23 BUN 41 H Creatinine 1.7 H Estimated GFR 28 BUN/Creatinine Ratio 24.11 Glucose 144 H Calcium 8.1 L Iron TIBC % Saturation Transferrin Total Creatine Kinase 62 59 CK-MB (CK-2) 2.6 3.1 CK-MB (CK-2) Rel Index 4.1 H 5.2 H Troponin T 0.392 H* 0.509 H* D Vitamin B12 03/22/17 03/23/17 03/24/17 10:27 06:09 07:00 WBC 9.4 RBC 3.28 L Hgb 9.4 L 9.4 L 9.8 L Hct 28.6 L D 28.3 L 30.4 MCV 87 MCH 29 MCHC 33 RDW 16.5 H Plt Count 185 Sodium Potassium Chloride Carbon Dioxide Anion Gap BUN Creatinine Estimated GFR BUN/Creatinine Ratio Glucose Calcium Iron TIBC % Saturation Transferrin Total Creatine Kinase CK-MB (CK-2) CK-MB (CK-2) Rel Index Troponin T Vitamin B12 03/24/17 07:00 WBC RBC Hgb Hct MCV MCH MCHC RDW Plt Count Sodium 143 Potassium 4.3 Chloride 104.7 Carbon Dioxide 23 Anion Gap 20 BUN 49 H Creatinine 1.6 H Estimated GFR 30 BUN/Creatinine Ratio 30.62 Glucose 111 H Calcium 8.0 L Iron TIBC % Saturation Transferrin Total Creatine Kinase CK-MB (CK-2) CK-MB (CK-2) Rel Index Troponin T Vitamin B12 Assessment and Plan Patient was assessed and evaluated for Acute Inpatient Rehab Unit. 86 y.o. female with HTN, symptomatic anemia following episode of epistaxis; now s/p transfusion and improved dyspnea. PT evaluation completed on today; Independent with bed mobility and transfers; Dwaine for gait >200 feet. Pt can be d/c'd home with home health when medical cleared by primary team as she does not require assistance with mobility. Please call for any further questions or change in status. Thank you for consultation. - Patient Problems (1) Dyspnea Current Visit: Yes Status: Acute Qualifiers: Dyspnea type: shortness of breath Qualified Code(s): R06.02 - Shortness of breath (2) Symptomatic anemia Current Visit: Yes Status: Acute (3) HTN (hypertension) Current Visit: Yes Status: Acute Qualifiers: Hypertension type: essential hypertension Qualified Code(s): I10 - Essential (primary) hypertension
--- NOTE | 2017-03-24 12:20 | Progress Note ---
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 Cont current medical management. GI eval noted. Recommend resuming home ASA 81 if/when okay with GI. Pt may discharge home from cardiology standpoint. Follow up in our [place] office with Dr. Mccauley on 03/28/2017 @ 1:30PM. The patient has been seen in conjunction with Dr. Tang who agrees with the assessment and plan of care. Subjective Date of service: 03/24/17 Principal diagnosis: sob Interval history: Pt resting comfortably in bed, no complaints. VSS. Objective Last Vital Signs Temp 98.4 F 03/24/17 10:08 Pulse 67 03/24/17 10:08 Resp 12 03/24/17 10:08 BP 125/61 03/24/17 10:08 Pulse Ox 98 03/24/17 10:08 - Physical Examination General: No Apparent Distress HEENT: Positive: PERRL, Normocephaly, Mucus Membranes Moist Neck: Positive: neck supple, trachea midline Cardiac: Positive: Reg Rate and Rhythm, S1/S2 Lungs: Positive: Normal Exam, clear to auscultation, Normal Breath Sounds Neuro: Positive: Grossly Intact, Cranial Nerve 2-12 Intact Abdomen: Positive: Unremarkable, Soft, Active Bowel Sounds. Negative: Tender Skin: Positive: Clear. Negative: Rash, Wound Musculoskeletal: No Fluid Collection, No Pain, Normal Range of Motion Extremities: Present: normal, upper extr. pulses, lower extr. pulses. Absent: edema - Labs and Meds CBC 03/24/17 Range/Units 07:00 Hgb 9.8 L (10.1-14.3) gm/dl Hct 30.4 (30.3-42.9) % Comprehensive Metabolic Panel 03/24/17 Range/Units 07:00 Sodium 143 (137-145) mmol/L Potassium 4.3 (3.6-5.0) mmol/L Chloride 104.7 (98-107) mmol/L Carbon Dioxide 23 (22-30) mmol/L BUN 49 H (7-17) mg/dL Creatinine 1.6 H (0.7-1.2) mg/dL Glucose 111 H (65-100) mg/dL Calcium 8.0 L (8.4-10.2) mg/dL - Imaging and Cardiology EKG: report reviewed, image reviewed Echo: report reviewed (01/2016: EF 20%, severely dilated LA, small pericardial effusion, mild-moderate TR, mild to moderate MR), other (severe LV dysfunction 10-15%, moderate severe mitral regurgitation mild tricuspid regurgitation with RVSP of 30 mmHg) Cardiac cath: report reviewed (03/2016: Successfull PCI of 90%LCx/OM2 stenosis with placement of overlapping 2.5 x15 mm and 3.0 x 23 mm Xience BRITTANIE with the proximal portion post dilated with 3.5 mm NC balloon. No residual stenosis and JENN 3 flow.) - Telemetry EKG Rhythm: Sinus Rhythm - EKG Sinus rhythms and dysrhythmias: sinus rhythm Repolarization changes or abnormalities: nonspecific abnormality, ST segment, and/or T wave
[2017-03-24 13:12] VITALS: BP 120/59
[2017-03-25] MEDS ORDERED: PROTONIX PO SCH (10:00)
[2017-03-28] MEDS ORDERED: ERGOCALCIFEROL PO SCH ×2 (10:00)
== END 2017-03-24 15:08 | disposition home health service (06) | DRG 280 ==
LOC: ED 10:43 → 3A 14:00 → 4A 14:47
PROVIDERS: ADMIT Internal Medicine; ATTEND Internal Medicine
PROC: 30233N1 Transfusion of Nonautologous Red Blood Cells into Peripheral Vein, Percutaneous Approach (ICD-10-PCS; principal; 2017-03-21)
DX: I21.4 Non-ST elevation (NSTEMI) myocardial infarction (principal); I50.23 Acute on chronic systolic (congestive) heart failure; I13.0 Hypertensive heart and chronic kidney disease with heart failure and stage 1 through stage 4 chronic kidney disease, or unspecified chronic kidney disease; N17.9 Acute kidney failure, unspecified; D64.9 Anemia, unspecified; H54.41 Blindness, right eye, normal vision left eye; I25.10 Atherosclerotic heart disease of native coronary artery without angina pectoris; Z66 Do not resuscitate; I25.5 Ischemic cardiomyopathy; N18.3 Chronic kidney disease, stage 3 (moderate); E78.5 Hyperlipidemia, unspecified; E11.22 Type 2 diabetes mellitus with diabetic chronic kidney disease; H35.30 Unspecified macular degeneration; Z87.891 Personal history of nicotine dependence; Z88.8 Allergy status to other drugs, medicaments and biological substances; Z79.82 Long term (current) use of aspirin; Z82.49 Family history of ischemic heart disease and other diseases of the circulatory system
CPT/HCPCS: 36415; 71010; 80048; 80061; 81001; 82271; 82550; 82553; 82607; 82747; 83550; 84484; 85014; 85018; 85025; 85027; 85610; 86850; 86900; 86901; 86920; 87086; 93005; 93010; 93306; 94760; 96360; A9270-GY; C9113; G8978-GP; G8979-GP; G8980-GP; G8987-GO; G8988-GO; G8989-GO; J1940; J2060; J7040; J7050; P9016